=== PATIENT | male | born 1975 | race Caucasian/White ===

== ENCOUNTER 2022-11-01 19:11 | Emergency (ER) | payer BC ==
[2022-11-01] MEDS ORDERED: Piperacillin/Tazobactam 3.375 GM in Sodium Chloride 0.9% 50 ML IV ONE (20:41)
[2022-11-01 20:50] LABS: CARBON DIOXIDE,CO2 25.7 mmol/L (21.0-32.0); POTASSIUM,K 4.4 mmol/L (3.5-5.1)
[2022-11-01] MEDS ORDERED: Iopamidol 755 MG/ML 500 ML Multipack Bottle IVPUSH STA (21:45)
[2022-11-01] MEDS ORDERED: Clindamycin Phosphate in D5W 900 MG in Premix Bag 1 BAG IV ONE ×2 (22:26)
[2022-11-01] MEDS ORDERED: VANCOmycin 2 GM/400 ML 400 ML IV ONE (23:00)
[2022-11-02] MEDS ORDERED: Ondansetron 4 MG/2 ML SDV IVPUSH ONE (01:06)
[2022-11-02] MEDS ORDERED: Morphine 4 MG/ML Syringe IVPUSH ONE (01:06)
== END 2022-11-02 01:27 ==
LOC: MW.ED 19:11
DX: K60.3 Anal fistula (principal); N49.3 Fournier gangrene; Z88.2 Allergy status to sulfonamides
CPT/HCPCS: 36415; 74177; 80053; 81001; 83605; 85025; 87040; 87070; 87205; 96365; 96366; 96367; 96368; 96375; 99284; J2270; J2405; J2543; J3370; J3490; J7050; Q9967